=== PATIENT | female | born 1955 | race Asian ===

== ENCOUNTER 2020-05-29 11:27 | Emergency (ER) | payer OTHER ==
[~2020-05-29] VITALS: Ht 160 cm; Wt 81.8 kg
[~2020-05-29 11:27] MED LIST: APIX5TAB PO; ARIP5TAB8 PO; ATOR40TA28 PO; CEPH-582 PO; FURO40 PO; METO25 PO
[2020-05-29 14:12] VITALS: BP 178/87
== END 2020-05-29 14:20 | disposition left against medical advice (07) ==
LOC: EMS 11:28
DX: R06.02 Shortness of breath (principal); Z53.21 Procedure and treatment not carried out due to patient leaving prior to being seen by health care provider
CPT/HCPCS: 93005